=== PATIENT | female | born 1960 | race African-American/Black ===

== ENCOUNTER 2020-04-04 07:38 | Day surgery (SDC) | payer OTHER ==
[2020-03-30 13:15] VITALS: BMI 23.8
[2020-04-04] MEDS: CELECOXIB 200 MG CAPSULE PO ONE ×2 (08:14→15:40)
[2020-04-04] MEDS ORDERED: ONDANSETRON 4 MG/2 ML VIAL IVPUSH PRN (09:48)
[2020-04-04] MEDS ORDERED: MAG HYDROX/AL HYDROX/SIMETH 30 ML UNIT-DOSE CUP PO PRN (09:48)
[2020-04-04] MEDS ORDERED: CEFAZOLIN 2 GM in DEXTROSE 5%-WATER - 50 ML IVPB ONE (10:00)
[2020-04-04] MEDS ORDERED: LACTATED RINGERS SOLUTION 1,000 ML IV SCH (10:00)
[2020-04-04] MEDS ORDERED: TRANEXAMIC ACID 1000 MG/10 ML VIAL IVPUSH ONE (10:00)
[2020-04-04] MEDS ORDERED: MIDAZOLAM HCL 2 MG/2 ML SINGLE DOSE VIAL ONE ×2 (10:05→11:25)
[2020-04-04] MEDS ORDERED: BUPIVACAINE LIPOSOME/PF (EXPAREL) 266 MG/20 ML VIAL ONE (10:05)
[2020-04-04] MEDS ORDERED: ceFAZolin SODIUM 1 GM VIAL ONE ×2 (10:23→10:36)
[2020-04-04] MEDS ORDERED: THROMBIN (RECOMBINANT) 5,000 UNIT VIAL TP ONE (10:23)
[2020-04-04] MEDS ORDERED: PROPOFOL 20 ML ONE ×3 (10:36→11:48)
[2020-04-04] MEDS ORDERED: DEXAMETHASONE SOD PHOSPHATE 4 MG/1 ML VIAL ONE (10:36)
[2020-04-04] MEDS ORDERED: BUPIVICAINE 0.25%/MORPH PF/KETOROLAC - 51ML DISP.SYRINGE IA ONE ×3 (11:00→12:17)
[2020-04-04] MEDS ORDERED: traMADol HCL 50 MG TABLET PO PRN (11:33)
[2020-04-04] MEDS ORDERED: oxyCODONE HCL 5 MG TABLET PO PRN (11:33)
[2020-04-04] MEDS ORDERED: ePHEDrine SULFATE 50 MG/1 ML AMPULE ONE (11:54)
[2020-04-04] MEDS: FERROUS SO4 325 MG TABLET (FP) PO SCH (15:40)
[2020-04-04] MEDS: PANTOPRAZOLE 40 MG TABLET PO SCH (15:41)
[2020-04-04] MEDS: MULTIVITAMINS (DAILY MVI) TABLET (FP) PO SCH (15:43)
[2020-04-04] MEDS: ACETAMINOPHEN 325 MG TABLET (FP) PO SCH ×2 (16:16→21:39)
[2020-04-04] MEDS: CEFAZOLIN 2 GM/D5W 2 GM/50 ML ML IVPB SCH (18:03)
[2020-04-04] MEDS: oxyCODONE HCL 5 MG TABLET PO PRN (21:38)
[2020-04-04] MEDS: SENNOSIDES/DOCUSATE COMBO (SENNA PLUS) TABLET (UD) PO SCH (21:38)
[2020-04-05] MEDS: CEFAZOLIN 2 GM/D5W 2 GM/50 ML ML IVPB SCH (02:22)
[2020-04-05] MEDS: ACETAMINOPHEN 325 MG TABLET (FP) PO SCH ×3 (03:23→15:31)
[2020-04-05] MEDS: oxyCODONE HCL 5 MG TABLET PO PRN ×2 (06:10→10:29)
[2020-04-05 06:52] VITALS: BP 116/56; PULSE 59; TEMP 98.3
[2020-04-05] MEDS ORDERED: ASPIRIN 325 MG TABLET PO SCH (08:00)
[2020-04-05] MEDS ORDERED: ENALAPRIL MALEATE 5 MG TABLET PO SCH (10:00)
[2020-04-05] MEDS: SENNOSIDES/DOCUSATE COMBO (SENNA PLUS) TABLET (UD) PO SCH (10:26)
[2020-04-05] MEDS: FERROUS SO4 325 MG TABLET (FP) PO SCH (10:27)
[2020-04-05] MEDS: PANTOPRAZOLE 40 MG TABLET PO SCH (10:28)
[2020-04-05] MEDS: MULTIVITAMINS (DAILY MVI) TABLET (FP) PO SCH (10:34)
== END 2020-04-05 17:19 | disposition home health service (06) ==
LOC: FASUSAT 07:38 → FM/S 07:38 → FASUSAT 04-05 17:19
PROVIDERS: ATTEND Orthopaedic Surgery
PROC: 8E0YXBZ Computer Assisted Procedure of Lower Extremity (ICD-10-PCS; 2020-04-04)
PROC: 8E0Y0CZ Robotic Assisted Procedure of Lower Extremity, Open Approach (ICD-10-PCS; 2020-04-04)
PROC: 0SRC0L9 Replacement of Right Knee Joint with Medial Unicondylar Synthetic Substitute, Cemented, Open Approach (ICD-10-PCS; principal; 2020-04-04 11:09)
DX: M17.11 Unilateral primary osteoarthritis, right knee (principal)
CPT/HCPCS: 20985; 27446; C1776; S2900; 73560-TC-RT-FY; 94760; 97010-GP; 97116-GP; 97163-GP